=== PATIENT | female | born 1965 | race Caucasian/White ===

== ENCOUNTER 2017-01-17 10:30 | Observation (INO) ==
[2017-01-17] MEDS ORDERED: *HR* HYDROmorphone (PF) 1 MG/ML SYRINGE IV ONE ×2 (11:44→14:35)
[2017-01-17] MEDS ORDERED: Ondansetron 4 MG/2 ML VIAL IVP ONE (11:44)
--- NOTE | 2017-01-17 11:54 | Emergency Department Note ---
Disposition Clinical Impression: Perirectal abscess Disposition: Admitted As Inpatient Condition: Good Referrals: Doug,Yoselyn Chanel CNP [Primary Care Provider] - Forms: Work/School Release, ED Satisfaction Letter General Adult HPI - General Chief complaint: ED General Medical Stated complaint: knot on bottom, constipated Time Seen by Provider: 01/17/17 11:17 Source: patient Limitations: no limitations Nursing Notes Reviewed: Yes Vital Signs Reviewed: Yes - History of Present Illness HPI Narrative: Patient here for evaluation of rectal pain. Patient has complex medical history including diabetes with gastric bypasses, complicated by infection and now chronic MRSA infection. Patient took a bath last night and afterwards noticed rectal pain most significant on the medial left area of the rectum. Patient is the point she cannot tolerate sitting. Patient had type 2 diabetes that underwent gastric bypass complicated with what is now chronic MRSA infection at the surgical site. She now takes Bactrim twice daily. On exam the patient does have hemorrhoids however there is concern for specific tenderness to the 8 to 9 o'clock position with possible abscess. Pain Scale: 8 - Related Data Home Medications Medication Instructions Recorded Confirmed Albuterol Sulfate [Albuterol 2 puff IH Q4HR PRN 08/15/15 01/17/17 Inhaler] Ascorbic Acid [Vitamin C] 1,000 mg PO DAILY 08/15/15 01/17/17 Aspirin 81 mg PO DAILY 08/15/15 01/17/17 Biotin 1 mg PO DAILY 08/15/15 01/17/17 BuPROPion SR (12 HR) [Wellbutrin 150 mg PO DAILY 08/15/15 01/17/17 SR] Cholecalciferol (Vitamin D3) 50,000 unit PO QWEEK 08/15/15 01/17/17 [Vitamin D3] Escitalopram [Lexapro] 10 mg PO DAILY 08/15/15 01/17/17 Fexofenadine HCl 180 mg PO DAILY 08/15/15 01/17/17 LORazepam [Ativan] 1 mg PO HS 08/15/15 01/17/17 Linagliptin [Tradjenta] 5 mg PO DAILY 08/15/15 01/17/17 Lisinopril [Zestril] 20 mg PO HS 08/15/15 01/17/17 Metformin [Glucophage] 500 mg PO BID 08/15/15 01/17/17 Atorvastatin [Lipitor] 40 mg PO HS 01/17/17 01/17/17 Cyanocobalamin (Vitamin B-12) 1,000 mcg PO DAILY 01/17/17 01/17/17 [Vitamin B12] Glimepiride [Amaryl] 1 mg PO DAILY 01/17/17 01/17/17 Omeprazole [PriLOSEC] 40 mg PO DAILY 01/17/17 01/17/17 Pnv95/Ferrous Fumarate/FA 1 each PO BID 01/17/17 01/17/17 [ Vitamin Tablet] Sulfamethoxazole/Trimeth DS 1 each PO DAILY 01/17/17 01/17/17 [Bactrim DS] Allergies Allergy/AdvReac Type Severity Reaction Status Date / Time cefdinir [From Omnicef] Allergy Mild shortness Verified 01/17/17 10:43 of breath ciprofloxacin [From Cipro] Allergy Mild Hives Verified 01/17/17 10:43 levofloxacin [From Levaquin] Allergy Mild RASH Verified 01/17/17 10:43 (PATIENT TOOK AND WENT TO [facility] BED) Penicillins Allergy Mild Hives Verified 01/17/17 10:43 CHILDHOOD REACTION codeine AdvReac Mild Nausea Verified 01/17/17 10:43 All systems ED: reviewed and negative except as stated. Constitutional: Denies: fever, chills, weakness Cardiovascular: Denies: chest pain, dyspnea on exertion Respiratory: Denies: cough Gastrointestinal: Reports: other (Rectal pain). 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 Absent : tenderness - Respiratory Respiratory exam: Present: normal lung sounds bilaterally. Absent: respiratory distress - Cardiovascular Cardiovascular exam: Present: regular rate, normal rhythm - Abdominal Exam Abdominal exam: Present: soft, Non-Tender - Rectal Exam Rectal exam: Present: other (Hemorrhoids present at the 7 to 8 o'clock position. Patient with specific tenderness today 9 o'clock position but with significant tenderness on rectal exam. Concern for possible abscess.) - Extremities Exam Extremities exam: Present: normal inspection. Absent: tenderness - Back Exam Back exam: Present: normal inspection. Absent: CVA tenderness (R), CVA tenderness (L) - Neurological Exam Neurological exam: Present: alert, oriented X3, CN II-XII intact - Psychiatric Psychiatric exam: Present: normal affect, normal mood - Skin Skin exam: Present: warm, dry, intact Course - Reevaluation(s) Reevaluation #1: Risks and benefits of drainage discussed with patient. Patient agrees to undergo procedural sedation for pain. Risks and benefits discussed. All questions answered. Written consent obtained. Patient received an initial 150 mg of ketamine IV and required 75 mg as repeat dose 2. Total ketamine given 300 mg. Patient was placed on oxygen with end-tidal CO2 monitoring. Oral airway placed during sedation. - Consultations Consultation #1: Discussed with Dr. Quintana. She will come to bedside to evaluate. Patient evaluated at bedside by Dr. Denton and there is no OR room available at this time. She has requested that we do procedural sedation for bedside I&D. We will perform bedside I&D with ketamine for sedation. wants pt placed on antibiotics and admitted for further evaluation as she has a history of diabetes and is considered high-risk Vital Signs Temperature 99.0 F 01/17/17 10:44 Pulse Rate 86 01/17/17 10:44 Respiratory Rate 15 01/17/17 10:44 Blood Pressure 121/85 01/17/17 10:44 O2 Sat by Pulse Oximetry 99 01/17/17 10:44 Temperature 99.0 F 01/17/17 10:44 Pulse Rate 92 01/17/17 14:56 Respiratory Rate 16 01/17/17 14:56 Blood Pressure 128/73 01/17/17 14:56 O2 Sat by Pulse Oximetry 99 01/17/17 10:44 Oxygen Delivery Oxygen Delivery [INTRA] Nasal Cannula Oxygen Delivery [PRE] Nasal Cannula Oxygen Delivery Room Air Procedures - Procedural Sedation Indication: incision and drainage of abscess Dietary Status: unknown H&P (including ROS) documented in medical record: Yes Previous reaction to sedatives/anesthetics: No Dentition: No loose teeth or bridges Airway Assessment: Patient can open mouth completely, TMJ function normal, Micrognathia (under-bite, receding chin) absent, Neck with adequate range of motion Possible difficult airway: No ASA Classification: CLASS II-Mild systemic disease Plan of Care: Pt appropriate candidate for procedure/moderate/conscious sedation , Risks/benefits of procedure/sedation discussed w/ patient/family, If not NPO; Risk of intake outweiged by necessity to perform procedure Preparation: athletic monitor applied, pulse oximeter, capnometry used, supplemental O2 applied, suction/airway equipment at bedside Ketamine: IV (300mg total; 150mg initial with 75mg x2 for prolonged sedation secondary to procedure length) Patient Tolerated Procedure: well Complications: none Interventions: oxygen applied Medical Decision Making - MDM Narrative Medical decision making narrative: I examined this patient and my medical decision-making was reviewed with the MOLDING TECHNICIAN/PA/Advanced Practice Nurse/Resident Physician. I agree with the documented findings, disposition and treatment plan as described except to the extent set forth below. I evaluated this patient with Dr. Lo, I agree with his evaluation and management plan, he supervised the care of the patient outstay. Patient comes in today with an area of tenderness along her rectum around the 9 o'clock position. She has had a history of MRSA in the past. She is also diabetic. Negative CT check lab work on her and reassess. She is in agreement with plan. She also has a small hemorrhoid in this area which does not appear to be tender. 1245 hrs.: Patient's labs are back and looked good waiting on CT. Abdomen/Pelvis CT 01/17/17 13:15 IMPRESSION: 1. 4.0 x 2.2 cm lobulated irregular soft tissue and fluid collection along the left perineal space, just lateral of the anus, consistent with a perianal abscess. 2. No acute abnormality within the abdomen or pelvis. 3. Stable left adrenal adenoma. 4. Stable right renal cyst. 5. Patient status post cholecystectomy, gastric bypass, and hysterectomy. D/ / 01/17/2017 13:55:03 Tim Rivera MD / Estelle Hernandez Interpreting Provider: Tim Rivera MD 1400 hrs.: Patient's CT is read that show a collection that appears to be a perianal abscess. Patient has seen Dr. Denton before and she is on today's risk because Dr. Denton the see if she pinched and evaluating this patient. 1515 hrs.: Patient is being seen by Dr. Denton doing an I&D. We did ketamine sedation while she did the I&D. Please see her note, please see Dr. Lo note for further sedation procedure, patient tolerated this well. Procedure time was 25 minutes. 1530 hrs.: Dr. Denton is going to go ahead and admit the patient. Were starting her on vancomycin here. Patient's critical care time excluding separately billable procedures is 35 minutes. - Lab Data Result diagrams: 01/17/17 12:02 01/17/17 12:02 Lab Results 01/17/17 01/17/17 Range/Units 12:02 12:02 WBC 7.6 (4.3-11.1) K/mcL RBC 4.14 (3.82-4.97) M/mcL Hgb 12.0 (11.5-15.4) g/dL Hct 35.9 (35.3-44.9) % MCV 86.7 (83.0-100.0) fL MCH 29.0 (28.0-33.3) pg MCHC 33.4 (31.6-35.5) g/dL RDW 12.8 (11.5-14.5) % Plt Count 189 (140-400) K/mcL MPV 9.2 L (9.4-12.4) fL Immature Gran % 0.4 (0-4) % Seg Neutrophils % 79.9 % Lymphocytes % 13.0 % Monocytes % 5.9 % Eosinophils % 0.5 % Basophils % 0.3 % Neutrophils # 6.1 (1.6-8.9) K/mcL Lymphocytes # 1.0 (0.6-4.6) K/mcL Monocytes # 0.5 (0.0-1.3) K/mcL Eosinophils # 0.0 (0.0-0.6) K/mcL Basophils # 0.0 (0.0-0.2) K/mcL Sodium 137 (136-145) mEq/L Potassium 4.6 H (3.5-4.5) mEq/L Chloride 105 (98-109) mEq/L Carbon Dioxide 24 (19-29) mEq/L BUN 12 (7-20) mg/dL Creatinine 1.08 (0.57-1.11) mg/dL Est GFR ( Amer) > 60 (> 60) Est GFR (Non-Af Amer) 53 L (> 60) BUN/Creatinine Ratio 11 (6-26) Glucose 216 H (70-99) mg/dL Calculated Osmolality 290 (280-300) Calcium 9.3 (8.6-10.8) mg/dL Total Bilirubin 0.4 (0.2-1.2) mg/dL AST 32 (5-34) Units/L ALT 83 H (0-55) Units/L Alkaline Phosphatase 116 (38-126) Units/L Serum Total Protein 6.5 (6.0-8.3) g/dL Albumin 3.5 (3.5-5.0) g/dL Globulin 3.0 (2.4-3.5) g/dL Albumin/Globulin Ratio 1.2 (1.1-2.2)
[2017-01-17 12:16] LABS: Basophils % 0.3 %; Eosinophils % 0.5 %; Hematocrit 35.9 % (35.3-44.9); Immature Granulocytes % 0.4 % (0-4); Mean Corpuscular HGB Conc 33.4 g/dL (31.6-35.5); Mean Corpuscular Volume 86.7 fL (83.0-100.0); Mean Platelet Volume 9.2 fL (9.4-12.4); Monocytes # 0.5 K/mcL (0.0-1.3); Monocytes % 5.9 %; Neutrophils # 6.1 K/mcL (1.6-8.9); Platelet Count 189 K/mcL (140-400); Red Blood Count 4.14 M/mcL (3.82-4.97); Red Cell Distribution Width 12.8 % (11.5-14.5); Segmented Neutrophils % 79.9 %
[2017-01-17 12:28] LABS: Alanine Aminotransferase 83 Units/L (0-55); Albumin 3.5 g/dL (3.5-5.0); Albumin/Globulin Ratio 1.2 (1.1-2.2); Alkaline Phosphatase 116 Units/L (38-126); Aspartate Amino Transferase 32 Units/L (5-34); BUN/Creatinine Ratio 11 (6-26); Bilirubin,Total 0.4 mg/dL (0.2-1.2); Blood Urea Nitrogen 12 mg/dL (7-20); Calcium 9.3 mg/dL (8.6-10.8); Carbon Dioxide 24 mEq/L (19-29); Chloride 105 mEq/L (98-109); Glucose 216 mg/dL (70-99); Osmolality,Calculated 290 (280-300); Potassium 4.6 mEq/L (3.5-4.5); Sodium 137 mEq/L (136-145); Total Protein 6.5 g/dL (6.0-8.3); eGFR For African Americans > 60 (> 60); eGFR For Non-African Americans 53 (> 60)
[2017-01-17] MEDS ORDERED: Ketamine *HR* 500 MG/10 ML MDV IVP ONE ×2 (14:36→16:02)
[2017-01-17] MEDS ORDERED: VANCOMYCIN IV ONE (15:29)
[2017-01-17] MEDS ORDERED: WATER IV ONE (15:29)
[2017-01-17] MEDS ORDERED: D5 IV ONE (15:29)
--- NOTE | 2017-01-17 15:44 | General Surg History&Physical ---
Date of Encounter: 01/17/17 Time of Encounter: 15:40 Assessment and Plan (1) Perianal abscess Current Visit: Yes Status: Acute Perianal abscess I/D'd in the ED with conscious sedation. Keep packing in wound , will remove tomorrow then start sitz baths TID and after BM. Continue Abx prn pain control home meds ok DM diet The assessment and plan as outlined above was discussed with the patient and/or family members who expressed understanding and agreement. All questions were answered. (2) Diabetes Current Visit: Yes Status: Chronic The assessment and plan as outlined above was discussed with the patient and/or family members who expressed understanding and agreement. All questions were answered. continue home medication Qualifiers: Diabetes mellitus type: type 2 Diabetes mellitus complication status: without complication Diabetes mellitus halfway insulin use: unspecified halfway insulin use status Qualified Code(s): E11.9 - Type 2 diabetes mellitus without complications (3) HTN (hypertension) Current Visit: Yes Status: Chronic The assessment and plan as outlined above was discussed with the patient and/or family members who expressed understanding and agreement. All questions were answered. continue home medication Qualifiers: Hypertension type: essential hypertension Qualified Code(s): I10 - Essential (primary) hypertension (4) Anxiety Current Visit: Yes Status: Chronic The assessment and plan as outlined above was discussed with the patient and/or family members who expressed understanding and agreement. All questions were answered. continue home medication (5) Hyperlipidemia Current Visit: Yes Status: Chronic The assessment and plan as outlined above was discussed with the patient and/or family members who expressed understanding and agreement. All questions were answered. continue home medication Qualifiers: Hyperlipidemia type: unspecified Qualified Code(s): E78.5 - Hyperlipidemia , unspecified History of Present Illness Chief complaint: perianal pain HPI: Ms. Curiel is a 51 year old female with a history of mrsa infections comes into ER complaining of perianal pain. The pain began last night after she took a bath. The pain is at the left perianal space. She had a bm today and it was painful. She has never had anything like this previously. She presented to the ED where a CT scan showed a 4cm perianal abscess. WBC wnl Past Med Surg Social Fam HX - Past Medical History Source: patient Medical history: asthma, diabetes, hyperlipidemia, hypertension Psychiatric history: anxiety - Past Surgical History Surgical History: hysterectomy, other - Social History Smoking Status: Never smoker Smokeless Tobacco Status: No Alcohol use: none Drug use: none Medications and Allergies Albuterol Sulfate [Albuterol Inhaler] 2 puff IH Q4HR PRN 08/15/15 [History] Ascorbic Acid [Vitamin C] 1,000 mg PO DAILY 08/15/15 [History] Aspirin 81 mg PO DAILY 08/15/15 [History] Biotin 1 mg PO DAILY 08/15/15 [History] BuPROPion SR (12 HR) [Wellbutrin SR] 150 mg PO DAILY 08/15/15 [History] Cholecalciferol (Vitamin D3) [Vitamin D3] 50,000 unit PO QWEEK 08/15/15 [History ] Escitalopram [Lexapro] 10 mg PO DAILY 08/15/15 [History] Fexofenadine HCl 180 mg PO DAILY 08/15/15 [History] LORazepam [Ativan] 1 mg PO HS 08/15/15 [History] Linagliptin [Tradjenta] 5 mg PO DAILY 08/15/15 [History] Lisinopril [Zestril] 20 mg PO HS 08/15/15 [History] Metformin [Glucophage] 500 mg PO BID 08/15/15 [History] Atorvastatin [Lipitor] 40 mg PO HS 01/17/17 [History] Cyanocobalamin (Vitamin B-12) [Vitamin B12] 1,000 mcg PO DAILY 01/17/17 [History ] Glimepiride [Amaryl] 1 mg PO DAILY 01/17/17 [History] Omeprazole [PriLOSEC] 40 mg PO DAILY 01/17/17 [History] Pnv95/Ferrous Fumarate/FA [ Vitamin Tablet] 1 each PO BID 01/17/17 [ History] Sulfamethoxazole/Trimeth DS [Bactrim DS] 1 each PO DAILY 01/17/17 [History] Allergies cefdinir [From Omnicef] Allergy (Mild, Verified 01/17/17 10:43) shortness of breath ciprofloxacin [From Cipro] Allergy (Mild, Verified 01/17/17 10:43) Hives levofloxacin [From Levaquin] Allergy (Mild, Verified 01/17/17 10:43) RASH (PATIENT TOOK AND WENT TO [facility] BED) Penicillins Allergy (Mild, Verified 01/17/17 10:43) Hives CHILDHOOD REACTION codeine Adverse Reaction (Mild, Verified 01/17/17 10:43) Nausea Review of Systems All systems PM: reviewed and no additional remarkable complaints except as stated All systems PM: A 10-system review of systems was performed and is negative for pertinent findings except as documented above in the HPI. General Surgery Exam Initial Vital Signs Temp Pulse Resp BP Pulse Ox 99.0 F 86 15 121/85 99 01/17/17 10:44 01/17/17 10:44 01/17/17 10:44 01/17/17 10:44 01/17/17 10:44 - General physical appearance well developed, well nourished, no distress - Eyes PERRL, normal ocular movement - ENT normal mucosa, normocephalic - Respiratory normal respiratory effort, clear to auscultation - Cardiovascular Cardiovascular exam: Present: RRR - Abdomen Abdomen general surgery: Present: bowel sounds present, soft, non tender - Rectum Rectum: Present: other (perianal fluctuance at anterior left anus, tender, slight erythema) - Neurologic Present: CN 2-12 grossly intact - Musculoskeletal Present: normal posture - Psychiatric Psychiatric general surgery: Present: A&Ox3, speech is normal Results - Labs 01/17/17 12:02 01/17/17 12:02 Abnormal lab results MPV 9.2 fL (9.4-12.4) L 01/17/17 12:02 Potassium 4.6 mEq/L (3.5-4.5) H 01/17/17 12:02 Est GFR (Non-Af Amer) 53 (> 60) L 01/17/17 12:02 Glucose 216 mg/dL (70-99) H 01/17/17 12:02 ALT 83 Units/L (0-55) H 01/17/17 12:02 Diabetes panel 01/17/17 Range/Units 12:02 Sodium 137 (136-145) mEq/L Potassium 4.6 H (3.5-4.5) mEq/L Chloride 105 (98-109) mEq/L Carbon Dioxide 24 (19-29) mEq/L BUN 12 (7-20) mg/dL Creatinine 1.08 (0.57-1.11) mg/dL Glucose 216 H (70-99) mg/dL Calcium 9.3 (8.6-10.8) mg/dL AST 32 (5-34) Units/L ALT 83 H (0-55) Units/L Alkaline Phosphatase 116 (38-126) Units/L Albumin 3.5 (3.5-5.0) g/dL Calcium panel 01/17/17 Range/Units 12:02 Calcium 9.3 (8.6-10.8) mg/dL Albumin 3.5 (3.5-5.0) g/dL Pituitary panel 01/17/17 Range/Units 12:02 Sodium 137 (136-145) mEq/L Potassium 4.6 H (3.5-4.5) mEq/L Chloride 105 (98-109) mEq/L Carbon Dioxide 24 (19-29) mEq/L BUN 12 (7-20) mg/dL Creatinine 1.08 (0.57-1.11) mg/dL Glucose 216 H (70-99) mg/dL Calcium 9.3 (8.6-10.8) mg/dL Adrenal panel 01/17/17 Range/Units 12:02 Sodium 137 (136-145) mEq/L Potassium 4.6 H (3.5-4.5) mEq/L Chloride 105 (98-109) mEq/L Carbon Dioxide 24 (19-29) mEq/L BUN 12 (7-20) mg/dL Creatinine 1.08 (0.57-1.11) mg/dL Glucose 216 H (70-99) mg/dL Calcium 9.3 (8.6-10.8) mg/dL Total Bilirubin 0.4 (0.2-1.2) mg/dL AST 32 (5-34) Units/L ALT 83 H (0-55) Units/L Alkaline Phosphatase 116 (38-126) Units/L Albumin 3.5 (3.5-5.0) g/dL All other labs normal. - Imaging CT scan - abdomen: report reviewed, image reviewed CT scan - pelvis: report reviewed, image reviewed Procedures: General Surgery - Abscess I/D Consent obtained: written consent Site: perianal Side (if applicable): left, midline Sedation/analgesia: other (ER performed conscious sedation, see their note for this component) Anesthetic used: lidocaine 1% (5cc) Technique: needle aspiration, incised with #11 blade Irrigation: Yes (sterile saline) Packing used: .25 inch iodoform Packing size: 1/4" Complications: none Additional comments: Patient was placed in the right lateral decubitus position. Timeout was performed everyone is in agreement. The ER performed conscious sedation. The perianal area was prepped with Betadine. Using a 19-gauge needle in a 10 mL syringe the area of perianal fluctuance was aspirated and pus was aspirated. Using an 11 blade a elliptical incision through the skin and subcutaneous tissue was made at the site of pus aspiration. Purulent drainage resulted from the wound. Aerobic and anaerobic cultures were obtained. The cavity was probed with a sterile Q-tip breaking up any loculations. The abscess cavity was irrigated with sterile saline. The abscess was then packed with quarter inch iodoform packing, 4 x 4 gauze and 2 inch silk tape were applied as a dressing. Patient tolerated the procedure well.
[2017-01-17] MEDS ORDERED: Vancomycin 1,000 MG VIAL ONE (16:00)
[2017-01-17] MEDS ORDERED: Vancomycin 1,500 MG in D5% in Water 250 ML IVPB ONE (16:15)
[2017-01-17] MEDS ORDERED: *HR* Morphine 2 MG/ML SYRINGE IVP PRN (16:56)
[2017-01-17] MEDS ORDERED: D5% in Water 1,000 ML IV PRN (16:56)
[2017-01-17] MEDS ORDERED: *HR* Metoprolol 5 MG/5 ML VIAL IVP PRN (16:56)
[2017-01-17] MEDS ORDERED: Ondansetron 4 MG/2 ML VIAL IVP PRN (16:56)
[2017-01-17] MEDS ORDERED: Dextrose Gel 15 GM PO PRN ×2 (16:56)
[2017-01-17] MEDS ORDERED: *HR* Promethazine 25 MG/ML VIAL IVP PRN (16:56)
[2017-01-17] MEDS ORDERED: Naloxone 0.4 MG/ML INJ IVP PRN (16:56)
[2017-01-17] MEDS ORDERED: *HR* Dextrose 50 % in Water (Syg) 50 ML SYRINGE IVP PRN (16:56)
[2017-01-17] MEDS: Fluconazole 100 MG TABLET PO SCH (17:43)
[2017-01-17] MEDS: Clindamycin 900 MG/50 ML 900 MG/50 ML IV.SOLN IVPB SCH ×2 (17:43→23:51)
[2017-01-17] MEDS: 0.9 % Sodium Chloride 1,000 ML IVC SCH (17:43)
[2017-01-17] MEDS: *HR* OxyCODONE/APAP 5/325 TABLET PO PRN (18:02)
[2017-01-17] MEDS: Lisinopril 20 MG TABLET PO SCH (21:17)
[2017-01-17] MEDS: *HR* LORazepam 1 MG TABLET PO SCH (21:17)
[2017-01-17] MEDS: *HR* Metformin 500 MG TABLET PO SCH (21:26)
[2017-01-18] MEDS: *HR* OxyCODONE/APAP 5/325 TABLET PO PRN ×4 (03:51→20:11)
[2017-01-18] MEDS: Vancomycin 1,250 MG in D5% in Water 250 ML IVPB SCH ×2 (03:52→16:50)
[2017-01-18 05:21] LABS: Basophils % 0.4 %; Eosinophils # 0.1 K/mcL (0.0-0.6); Eosinophils % 1.4 %; Hematocrit 32.4 % (35.3-44.9); Hemoglobin 10.5 g/dL (11.5-15.4); Immature Granulocytes % 0.6 % (0-4); Lymphocytes # 0.9 K/mcL (0.6-4.6); Lymphocytes % 17.7 %; Mean Corpuscular HGB Conc 32.4 g/dL (31.6-35.5); Mean Corpuscular Hemoglobin 28.7 pg (28.0-33.3); Mean Corpuscular Volume 88.5 fL (83.0-100.0); Mean Platelet Volume 9.7 fL (9.4-12.4); Monocytes # 0.5 K/mcL (0.0-1.3); Monocytes % 9.9 %; Neutrophils # 3.4 K/mcL (1.6-8.9); Platelet Count 177 K/mcL (140-400); Red Blood Count 3.66 M/mcL (3.82-4.97); Red Cell Distribution Width 12.8 % (11.5-14.5)
[2017-01-18 05:34] LABS: Calcium 8.8 mg/dL (8.6-10.8); Potassium 4.8 mEq/L (3.5-4.5)
[2017-01-18] MEDS ORDERED: 0.9 % Sodium Chloride 500 ML IVC ONE (08:16)
[2017-01-18] MEDS: Clindamycin 900 MG/50 ML 900 MG/50 ML IV.SOLN IVPB SCH ×2 (08:18→16:05)
[2017-01-18] MEDS: BuPROPion SR (12 HR) 150 MG TABLET PO SCH (08:19)
[2017-01-18] MEDS: Loratadine 10 MG TABLET PO SCH (08:19)
[2017-01-18] MEDS: Insulin LISPRO 300 UNITS/3 ML VIAL SQ SCH ×3 (08:20→16:51)
[2017-01-18] MEDS: *HR* Glimepiride 2 MG TABLET PO SCH (08:20)
[2017-01-18] MEDS: Fluconazole 100 MG TABLET PO SCH (08:20)
[2017-01-18] MEDS: (Linagliptin [Tradjenta] 5 MG) PO SCH (08:20)
[2017-01-18] MEDS: *HR* Metformin 500 MG TABLET PO SCH ×2 (08:20→20:10)
[2017-01-18] MEDS ORDERED: NON-FORMULARY MEDICATION 1 EACH EACH (Omeprazole [Prilosec] 40 MG) PO SCH (09:00)
--- NOTE | 2017-01-18 10:09 | General Surgery Progress Note ---
<Jeevan Clark - Last Filed: 01/18/17 11:25> Date of Encounter: 01/18/17 Time of Encounter: 07:40 - Assessment and Plan (1) Perianal abscess Current Visit: Yes Status: Acute Packing to be removed today. Sitz baths TID and after bowel movements. History of MRSA. Continue clindamycin and vancomycin Day #2. Prn pain control. Continue diabetic diet. Continue home medications. (2) YONATAN (acute kidney injury) Current Visit: Yes Status: Acute Creatinine elevated at 1.26 today. The patient was given a 1L bolus of fluids. I called and spoke with the pharmacist who stated that they will adjust dosing of Vancomycin if necessary. Continue to monitor. (3) Diabetes Current Visit: Yes Status: Chronic Continue home medications. Qualifiers: Diabetes mellitus type: type 2 Diabetes mellitus complication status: without complication Diabetes mellitus termination clerk insulin use: unspecified detention insulin use status Qualified Code(s): E11.9 - Type 2 diabetes mellitus without complications (4) HTN (hypertension) Current Visit: Yes Status: Chronic Continue home medications. Qualifiers: Hypertension type: essential hypertension Qualified Code(s): I10 - Essential (primary) hypertension (5) Anxiety Current Visit: Yes Status: Chronic Continue home medications. (6) Hyperlipidemia Current Visit: Yes Status: Chronic Continue home medications. Qualifiers: Hyperlipidemia type: unspecified Qualified Code(s): E78.5 - Hyperlipidemia , unspecified (7) DVT prophylaxis Current Visit: Yes Status: Acute Ambulate TID with assist. Subjective Patient reports: no new complaints Narrative: The patient reports that she had an episode of nausea and vomiting last night, which has since resolved. She continues to have some soreness in the area of her abscess. She states she has not had any bowel movement since arriving to the hospital yesterday. She states that she felt feverish for a period of time last night. The patient's recorded Tmax was 99.3 at 7:25pm last night. Objective Vital Signs - Last 8 Hours Temp Pulse Resp BP Pulse Ox 01/18/17 07:12 97.9 F 66 14 107/57 94 L 01/18/17 03:38 98.1 F 70 14 94/60 93 L Intake and Output 01/17/17 01/18/17 01/18/17 23:59 07:59 15:59 Intake Total 50 / 50 300 / 300 1290 / 1290 Output Total 500 / 500 250 / 250 Balance -450 / -450 50 / 50 1290 / 1290 Intake: IV Fluids 50 / 50 300 / 300 1050 / 1050 0.9 % Sodium Chloride 1, 1000 / 1000 000 ML @ 75 mls/hr IVC . [id number] JORGE A Rx#: [id number] Cleocin 900 MG/50 ML 900 50 / 50 50 / 50 50 / 50 mg In 50 ml @ 50 mls/hr IVPB Q8HR JORGE A Rx#: [id number] Vancocin 1,250 MG In 250 / 250 Dextrose 5% 250 ML @ 166. 67 mls/hr IVPB Q12H JORGE A Rx#:[id number] Oral 0 / 0 0 / 0 240 / 240 Output: Urine 500 / 500 250 / 250 Other: Meal Breakfast Percent of Meal Consumed 25% # Voids 1 1 Weight 77 kg Blood Glucose* 265 297 Patient Weight 01/18/17 23:59 Weight 77 kg - General physical appearance well developed, well nourished, no distress - Eyes normal ocular movement - ENT normal mucosa, atraumatic, normocephalic - Neck Neck exam: trachea midline - Respiratory normal respiratory effort, clear to auscultation - Cardiovascular Cardiovascular exam: Present: RRR - Abdomen Abdomen: Present: bowel sounds present, soft, non tender - Integumentary no rash - Neurologic CN 2-12 grossly intact - Psychiatric oriented to time, oriented to person, oriented to place, speech is normal, memory intact - Labs 01/18/17 04:54 01/18/17 04:54 Diabetes panel 01/18/17 Range/Units 04:54 Sodium 136 (136-145) mEq/L Potassium 4.8 H (3.5-4.5) mEq/L Chloride 104 (98-109) mEq/L Carbon Dioxide 24 (19-29) mEq/L BUN 16 (7-20) mg/dL Creatinine 1.26 H (0.57-1.11) mg/dL Glucose 286 H (70-99) mg/dL Calcium 8.8 (8.6-10.8) mg/dL Calcium panel 01/18/17 Range/Units 04:54 Calcium 8.8 (8.6-10.8) mg/dL Pituitary panel 01/18/17 Range/Units 04:54 Sodium 136 (136-145) mEq/L Potassium 4.8 H (3.5-4.5) mEq/L Chloride 104 (98-109) mEq/L Carbon Dioxide 24 (19-29) mEq/L BUN 16 (7-20) mg/dL Creatinine 1.26 H (0.57-1.11) mg/dL Glucose 286 H (70-99) mg/dL Calcium 8.8 (8.6-10.8) mg/dL Adrenal panel 01/18/17 Range/Units 04:54 Sodium 136 (136-145) mEq/L Potassium 4.8 H (3.5-4.5) mEq/L Chloride 104 (98-109) mEq/L Carbon Dioxide 24 (19-29) mEq/L BUN 16 (7-20) mg/dL Creatinine 1.26 H (0.57-1.11) mg/dL Glucose 286 H (70-99) mg/dL Calcium 8.8 (8.6-10.8) mg/dL Consult Discharge Plan - Plan Referrals: Yoselyn Camacho [employer] [Primary Care Provider] - - Attending Attestation I examined this patient and my medical decision-making was reviewed with the DRAWING MACHINE OPERATOR/PA/Advanced Practice Nurse/Resident Physician. I agree with the documented findings, disposition and treatment plan as described except to the extent set forth below. <Barbie Quintana - Last Filed: 01/18/17 11:36> Date of Encounter: 01/18/17 Time of Encounter: 11:30 - Assessment and Plan (1) Perianal abscess Current Visit: Yes Status: Acute s/p I/D continue Abx, discussed vanco dosing and Cr with pharmacy, they stated may adjust dosing recheck Cr in am, 500cc bolus NS given today, continue IVF hydration diabetic diet continue home meds cultures from I/D pending (2) Diabetes Current Visit: Yes Status: Chronic holding metformin for 72 hrs secondary to IV contrast Qualifiers: Diabetes mellitus type: type 2 Diabetes mellitus complication status: without complication Diabetes mellitus termination clerk insulin use: unspecified detention insulin use status Qualified Code(s): E11.9 - Type 2 diabetes mellitus without complications (3) HTN (hypertension) Current Visit: Yes Status: Chronic normotensive, monitor, continue home meds Qualifiers: Hypertension type: essential hypertension Qualified Code(s): I10 - Essential (primary) hypertension (4) Anxiety Current Visit: Yes Status: Chronic (5) Hyperlipidemia Current Visit: Yes Status: Chronic Qualifiers: Hyperlipidemia type: unspecified Qualified Code(s): E78.5 - Hyperlipidemia , unspecified (6) YONATAN (acute kidney injury) Current Visit: Yes Status: Acute pt recieved IV contrast for CT scan yday, on vanco. bolus NS given and IVF running at 75c/hr, monitor Cr good uop Subjective Narrative: pain primarily controlled c/o headache last night tolerating diet urinating w/o incident Objective Vital Signs - Last 8 Hours Temp Pulse Resp BP Pulse Ox 01/18/17 07:12 97.9 F 66 14 107/57 94 L 01/18/17 03:38 98.1 F 70 14 94/60 93 L Intake and Output 01/17/17 01/18/17 01/18/17 23:59 07:59 15:59 Intake Total 50 / 50 300 / 300 1290 / 1290 Output Total 500 / 500 250 / 250 Balance -450 / -450 50 / 50 1290 / 1290 Intake: IV Fluids 50 / 50 300 / 300 1050 / 1050 0.9 % Sodium Chloride 1, 1000 / 1000 000 ML @ 75 mls/hr IVC . [id number] JORGE A Rx#: [id number] Cleocin 900 MG/50 ML 900 50 / 50 50 / 50 50 / 50 mg In 50 ml @ 50 mls/hr IVPB Q8HR JORGE A Rx#: [id number] Vancocin 1,250 MG In 250 / 250 Dextrose 5% 250 ML @ 166. 67 mls/hr IVPB Q12H JORGE A Rx#:[id number] Oral 0 / 0 0 / 0 240 / 240 Output: Urine 500 / 500 250 / 250 Other: Meal Breakfast Percent of Meal Consumed 25% # Voids 1 1 Weight 77 kg Blood Glucose* 265 297 Patient Weight 01/18/17 23:59 Weight 77 kg - General physical appearance well developed, well nourished, no distress - Eyes normal ocular movement - ENT normal mucosa, normocephalic - Neck Neck exam: trachea midline - Respiratory normal expansion, normal respiratory effort - Cardiovascular Cardiovascular exam: Present: RRR - Abdomen Abdomen: Present: soft, non tender - Rectum other (I/D site, still cleaner, no purulent drainage, packing removed) - Integumentary no rash, no growths - Neurologic CN 2-12 grossly intact - Musculoskeletal normal posture - Psychiatric oriented to time, memory intact - Labs 01/18/17 04:54 01/18/17 04:54 Diabetes panel 01/18/17 Range/Units 04:54 Sodium 136 (136-145) mEq/L Potassium 4.8 H (3.5-4.5) mEq/L Chloride 104 (98-109) mEq/L Carbon Dioxide 24 (19-29) mEq/L BUN 16 (7-20) mg/dL Creatinine 1.26 H (0.57-1.11) mg/dL Glucose 286 H (70-99) mg/dL Calcium 8.8 (8.6-10.8) mg/dL Calcium panel 01/18/17 Range/Units 04:54 Calcium 8.8 (8.6-10.8) mg/dL Pituitary panel 01/18/17 Range/Units 04:54 Sodium 136 (136-145) mEq/L Potassium 4.8 H (3.5-4.5) mEq/L Chloride 104 (98-109) mEq/L Carbon Dioxide 24 (19-29) mEq/L BUN 16 (7-20) mg/dL Creatinine 1.26 H (0.57-1.11) mg/dL Glucose 286 H (70-99) mg/dL Calcium 8.8 (8.6-10.8) mg/dL Adrenal panel 01/18/17 Range/Units 04:54 Sodium 136 (136-145) mEq/L Potassium 4.8 H (3.5-4.5) mEq/L Chloride 104 (98-109) mEq/L Carbon Dioxide 24 (19-29) mEq/L BUN 16 (7-20) mg/dL Creatinine 1.26 H (0.57-1.11) mg/dL Glucose 286 H (70-99) mg/dL Calcium 8.8 (8.6-10.8) mg/dL
--- NOTE | 2017-01-18 11:42 | Discharge Summary ---
<Jeevan Clark - Last Filed: 01/20/17 07:28> Date of Encounter: 01/20/17 Time of Encounter: 06:45 - Discharge Diagnosis (1) Perianal abscess Priority: Primary Status: Acute (2) YONATAN (acute kidney injury) Priority: Secondary Status: Acute (3) Diabetes Priority: Secondary Status: Chronic Qualifiers: Diabetes mellitus type: type 2 Diabetes mellitus complication status: without complication Diabetes mellitus bed bug exterminator insulin use: unspecified bed bug exterminator insulin use status Qualified Code(s): E11.9 - Type 2 diabetes mellitus without complications (4) HTN (hypertension) Priority: Secondary Status: Chronic Qualifiers: Hypertension type: essential hypertension Qualified Code(s): I10 - Essential (primary) hypertension (5) Anxiety Priority: Secondary Status: Chronic (6) Hyperlipidemia Priority: Secondary Status: Chronic Qualifiers: Hyperlipidemia type: unspecified Qualified Code(s): E78.5 - Hyperlipidemia , unspecified (7) DVT prophylaxis Priority: Secondary Status: Acute - Discharge Medications Prescriptions: OxyCODONE/APAP 5/325 [Percocet 5/325 MG] 1 each PO Q6HR PRN #40 tablet PRN Reason: Pain Docusate [Colace] 100 mg PO BID #30 capsule Sulfamethoxazole/Trimeth DS [Bactrim DS] 1 each PO BID #20 tablet Home Medications: Albuterol Sulfate [Albuterol Inhaler] 2 puff IH Q4HR PRN 08/15/15 [History] Ascorbic Acid [Vitamin C] 1,000 mg PO DAILY 08/15/15 [History] Aspirin 81 mg PO DAILY 08/15/15 [History] Biotin 1 mg PO DAILY 08/15/15 [History] BuPROPion SR (12 HR) [Wellbutrin SR] 150 mg PO DAILY 08/15/15 [History] Cholecalciferol (Vitamin D3) [Vitamin D3] 50,000 unit PO QWEEK 08/15/15 [History ] Escitalopram [Lexapro] 10 mg PO DAILY 08/15/15 [History] Fexofenadine HCl 180 mg PO DAILY 08/15/15 [History] LORazepam [Ativan] 1 mg PO HS 08/15/15 [History] Linagliptin [Tradjenta] 5 mg PO DAILY 08/15/15 [History] Lisinopril [Zestril] 20 mg PO HS 08/15/15 [History] Metformin [Glucophage] 500 mg PO BID 08/15/15 [History] Atorvastatin [Lipitor] 40 mg PO HS 01/17/17 [History] Cyanocobalamin (Vitamin B-12) [Vitamin B12] 1,000 mcg PO DAILY 01/17/17 [History ] Glimepiride [Amaryl] 1 mg PO DAILY 01/17/17 [History] Omeprazole [PriLOSEC] 40 mg PO DAILY 01/17/17 [History] Pnv95/Ferrous Fumarate/FA [ Vitamin Tablet] 1 each PO BID 01/17/17 [ History] Sulfamethoxazole/Trimeth DS [Bactrim DS] 1 each PO DAILY 01/17/17 [History] Docusate [Colace] 100 mg PO BID #30 capsule 01/20/17 [Rx] OxyCODONE/APAP 5/325 [Percocet 5/325 MG] 1 each PO Q6HR PRN #40 tablet 01/20/17 [Rx] Sulfamethoxazole/Trimeth DS [Bactrim DS] 1 each PO BID #20 tablet 01/20/17 [Rx] Allergies/Adverse Reactions: Allergies cefdinir [From Omnicef] Allergy (Mild, Verified 01/17/17 10:43) shortness of breath ciprofloxacin [From Cipro] Allergy (Mild, Verified 01/17/17 10:43) Hives levofloxacin [From Levaquin] Allergy (Mild, Verified 01/17/17 10:43) RASH (PATIENT TOOK AND WENT TO [facility]) Penicillins Allergy (Mild, Verified 01/17/17 10:43) Hives CHILDHOOD REACTION codeine Adverse Reaction (Mild, Verified 01/17/17 10:43) Nausea General Surgery Exam Initial Vital Signs Temp Pulse Resp BP Pulse Ox 99.0 F 86 15 121/85 99 01/17/17 10:44 01/17/17 10:44 01/17/17 10:44 01/17/17 10:44 01/17/17 10:44 - General physical appearance well developed, well nourished, no distress - Eyes normal ocular movement - ENT normal mucosa, atraumatic, normocephalic - Neck trachea midline - Respiratory normal respiratory effort, clear to auscultation - Cardiovascular Cardiovascular exam: Present: RRR - Abdomen Abdomen general surgery: Present: bowel sounds present, soft, non tender - Rectum Rectum: Present: other (I/D site, no purulent drainage) - Integumentary Integumentary general surgery: Present: warm and dry - Neurologic Present: CN 2-12 grossly intact - Psychiatric Psychiatric general surgery: Present: appropriate, oriented to person, oriented to place, oriented to time, speech is normal Date of admission: 01/17/17 16:06 Primary care physician: Yoselyn Camacho CNP Discharging clinician: Barbie Quintana Anticipated date of discharge: 01/19/17 - Patient Status Disposition: Home, Self-Care Condition: Good Functional capacity at discharge: independent ambulation Overall status at discharge: patient is back to baseline - Discharge Instructions Follow Up With: Marii Adams CNP [Advanced Practice Nurse] - 02/03/17 9:15 am Additional Instructions: Continue sitz baths three times a day and after bowel movements. Keep the area clean and dry. No lifting more than 20lbs for [address] while on narcotics. Followup with either Latanya Adams or Dr. Quintana within 2 weeks. Call for appointment. If constipated while on colace picker and sorter load and unload a bottle of magnesium citrate from local pharmacy. Drink 1/3 of the bottle and wait several hours. If no results drink the next 1/3. If still no results, then drink the next 1/3 on the following day. - Diet and Activity Activity: increase activity as tolerated Diet: advance to your usual diet - Hospital Course Hospital course: Ms. 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 She was found to have a perianal abscess that occurred while on Bactrim BID. The abscess underwent I/D in the ED with conscious sedation on 01/17/17. Vancomycin and clindamycin were ordered for antibiotic coverage. The wound was packed and the following day the packing was removed and sitz baths were ordered. The patient reported that the sitz baths helped with the soreness of her area of pain. She reports she has not had a bowel movement yet. Her creatinine was found to be slightly elevated on 01/18 and continued to rise to 1.36 on 01/19. Vancomycin was discontinued and the patient was kept for an additional day to continue to monitor renal function. On 01/20 her creatinine improved to 1.24. The patient was comfortable and agreeable to returning home. All questions were answered and the patient is understanding and agreeable to the plan of care. - Time Spent with Patient Total time spent providing and/or coordinating discharge services: Less than 30 minutes Labs on day of discharge: Labs from last 24 hours 01/18/17 01/18/17 01/17/17 04:54 04:54 21:11 WBC 4.9 RBC 3.66 L Hgb 10.5 L D Hct 32.4 L MCV 88.5 MCH 28.7 MCHC 32.4 RDW 12.8 Plt Count 177 MPV 9.7 Immature Gran % 0.6 Seg Neutrophils % 70.0 Lymphocytes % 17.7 Monocytes % 9.9 Eosinophils % 1.4 Basophils % 0.4 Neutrophils # 3.4 Lymphocytes # 0.9 Monocytes # 0.5 Eosinophils # 0.1 Basophils # 0.0 Sodium 136 Potassium 4.8 H Chloride 104 Carbon Dioxide 24 BUN 16 Creatinine 1.26 H Est GFR ( Amer) 54 L Est GFR (Non-Af Amer) 45 L BUN/Creatinine Ratio 13 Glucose 286 H POC Glucose 265 H Calculated Osmolality 294 Calcium 8.8 01/17/17 17:19 WBC RBC Hgb Hct MCV MCH MCHC RDW Plt Count MPV Immature Gran % Seg Neutrophils % Lymphocytes % Monocytes % Eosinophils % Basophils % Neutrophils # Lymphocytes # Monocytes # Eosinophils # Basophils # Sodium Potassium Chloride Carbon Dioxide BUN Creatinine Est GFR ( Amer) Est GFR (Non-Af Amer) BUN/Creatinine Ratio Glucose POC Glucose 281 H Calculated Osmolality Calcium - Attending Attestation I examined this patient and my medical decision-making was reviewed with the SILK WORKER/PA/Advanced Practice Nurse/Resident Physician. I agree with the documented findings, disposition and treatment plan as described except to the extent set forth below. <Barbie Quintana - Last Filed: 01/20/17 08:49> Date of Encounter: 01/20/17 - Discharge Diagnosis (1) Perianal abscess Status: Acute (2) Diabetes Status: Chronic Qualifiers: Diabetes mellitus type: type 2 Diabetes mellitus complication status: without complication Diabetes mellitus bed bug exterminator insulin use: unspecified bed bug exterminator insulin use status Qualified Code(s): E11.9 - Type 2 diabetes mellitus without complications (3) HTN (hypertension) Status: Chronic Qualifiers: Hypertension type: essential hypertension Qualified Code(s): I10 - Essential (primary) hypertension (4) Anxiety Status: Chronic (5) Hyperlipidemia Status: Chronic Qualifiers: Hyperlipidemia type: unspecified Qualified Code(s): E78.5 - Hyperlipidemia , unspecified (6) YONATAN (acute kidney injury) Status: Acute General Surgery Exam Initial Vital Signs Temp Pulse Resp BP Pulse Ox 99.0 F 86 15 121/85 99 01/17/17 10:44 01/17/17 10:44 01/17/17 10:44 01/17/17 10:44 01/17/17 10:44 Date of admission: 01/17/17 16:06 Primary care physician: Yoselyn Camacho CNP - Hospital Course Hospital course: Ms. Curiel is a 51 year old female - Time Spent with Patient Total time spent providing and/or coordinating discharge services: Labs on day of discharge: Labs from last 24 hours 01/20/17 01/19/17 01/19/17 05:11 20:15 15:58 Sodium 140 Potassium 4.5 Chloride 110 H Carbon Dioxide 22 BUN 14 Creatinine 1.24 H Est GFR ( Amer) 55 L Est GFR (Non-Af Amer) 45 L BUN/Creatinine Ratio 11 Glucose 148 H POC Glucose 201 H 121 H Calculated Osmolality 293 Calcium 8.5 L 01/19/17 11:38 Sodium Potassium Chloride Carbon Dioxide BUN Creatinine Est GFR ( Amer) Est GFR (Non-Af Amer) BUN/Creatinine Ratio Glucose POC Glucose 307 H Calculated Osmolality Calcium
[2017-01-18] MEDS: 0.9 % Sodium Chloride 1,000 ML IVC SCH (12:00)
[2017-01-18] MEDS: *HR* LORazepam 1 MG TABLET PO SCH (20:10)
[2017-01-18] MEDS: Lisinopril 20 MG TABLET PO SCH (20:11)
[2017-01-19] MEDS: *HR* OxyCODONE/APAP 5/325 TABLET PO PRN ×5 (00:15→22:47)
[2017-01-19] MEDS: 0.9 % Sodium Chloride 1,000 ML IVC SCH ×2 (01:30→16:52)
[2017-01-19] MEDS: Clindamycin 900 MG/50 ML 900 MG/50 ML IV.SOLN IVPB SCH ×4 (01:30→22:47)
[2017-01-19 04:25] LABS: Basophils % 0.7 %; Eosinophils # 0.1 K/mcL (0.0-0.6); Eosinophils % 2.4 %; Hematocrit 32.5 % (35.3-44.9); Hemoglobin 10.5 g/dL (11.5-15.4); Immature Granulocytes % 0.7 % (0-4); Lymphocytes # 0.8 K/mcL (0.6-4.6); Lymphocytes % 17.4 %; Mean Corpuscular HGB Conc 32.3 g/dL (31.6-35.5); Mean Corpuscular Hemoglobin 28.6 pg (28.0-33.3); Mean Corpuscular Volume 88.6 fL (83.0-100.0); Mean Platelet Volume 9.6 fL (9.4-12.4); Monocytes # 0.4 K/mcL (0.0-1.3); Monocytes % 8.1 %; Neutrophils # 3.2 K/mcL (1.6-8.9); Platelet Count 161 K/mcL (140-400); Red Blood Count 3.67 M/mcL (3.82-4.97); Segmented Neutrophils % 70.7 %
[2017-01-19 04:49] LABS: Calcium 8.6 mg/dL (8.6-10.8); Potassium 4.6 mEq/L (3.5-4.5)
[2017-01-19] MEDS: Loratadine 10 MG TABLET PO SCH (07:50)
[2017-01-19] MEDS: *HR* Metformin 500 MG TABLET PO SCH ×2 (07:50→21:06)
[2017-01-19] MEDS: *HR* Glimepiride 2 MG TABLET PO SCH (07:50)
[2017-01-19] MEDS: BuPROPion SR (12 HR) 150 MG TABLET PO SCH (07:50)
[2017-01-19] MEDS: Fluconazole 100 MG TABLET PO SCH (07:52)
[2017-01-19] MEDS: Insulin LISPRO 300 UNITS/3 ML VIAL SQ SCH ×3 (07:52→16:56)
[2017-01-19] MEDS: (Linagliptin [Tradjenta] 5 MG) PO SCH (07:55)
[2017-01-19] MEDS ORDERED: Aminoglycoside Consult 1 EACH MC ONE (08:46)
--- NOTE | 2017-01-19 11:24 | General Surgery Progress Note ---
<Barbie Quintana - Last Filed: 01/19/17 11:28> Date of Encounter: 01/19/17 - Assessment and Plan (1) Perianal abscess Current Visit: Yes Status: Acute cultures pending, gram stain showed gnr, continue clinda DC vanco secondary to increasing Cr will restart po bactrim she takes for mrsa infections (2) Diabetes Current Visit: Yes Status: Chronic holding metformin, increased SSI due to elevated MBS, monitor Qualifiers: Diabetes mellitus type: type 2 Diabetes mellitus complication status: without complication Diabetes mellitus assisted insulin use: unspecified computer terminal operator insulin use status Qualified Code(s): E11.9 - Type 2 diabetes mellitus without complications (3) HTN (hypertension) Current Visit: Yes Status: Chronic normotensive, continue home meds Qualifiers: Hypertension type: essential hypertension Qualified Code(s): I10 - Essential (primary) hypertension (4) Anxiety Current Visit: Yes Status: Chronic (5) Hyperlipidemia Current Visit: Yes Status: Chronic Qualifiers: Hyperlipidemia type: unspecified Qualified Code(s): E78.5 - Hyperlipidemia , unspecified (6) YONATAN (acute kidney injury) Current Visit: Yes Status: Acute Subjective Narrative: patient still complaining of soreness at anus, passing flatus but no bm yet tolerating diet no fevers Objective Vital Signs - Last 8 Hours Temp Pulse Resp BP Pulse Ox 01/19/17 07:30 98.1 F 63 16 130/74 94 L 01/19/17 04:32 98.0 F 57 18 121/71 97 Intake and Output 01/18/17 01/19/17 01/19/17 23:59 07:59 15:59 Intake Total 420 / 420 1150 / 1150 120 / 120 Output Total 600 / 600 1900 / 1900 Balance -180 / -180 -750 / -750 120 / 120 Intake: IV Fluids 300 / 300 1050 / 1050 0.9 % Sodium Chloride 1, 1000 / 1000 000 ML @ 75 mls/hr IVC . [id number] JORGE A Rx#: [id number] Cleocin 900 MG/50 ML 900 50 / 50 50 / 50 mg In 50 ml @ 50 mls/hr IVPB Q8HR JORGE A Rx#: [id number] Oral 120 / 120 100 / 100 120 / 120 Output: Urine 600 / 600 1900 / 1900 Other: Meal Dinner Breakfast Percent of Meal Consumed 50% 20% # Voids 3 Weight 77.9 kg Blood Glucose* [id number] Patient Weight 01/19/17 23:59 Weight 77.9 kg - General physical appearance well developed, well nourished, no distress - Eyes PERRL, normal ocular movement - ENT normal mucosa, normocephalic - Neck Neck exam: trachea midline - Respiratory clear to auscultation - Cardiovascular Cardiovascular exam: Present: RRR - Abdomen Abdomen: Present: soft, non tender - Rectum other (decreased erythema, induration and fluctuance, no significant purulent drainage) - Integumentary no rash, no growths - Neurologic CN 2-12 grossly intact - Musculoskeletal normal posture - Psychiatric oriented to time, memory intact - Labs 01/19/17 03:44 01/19/17 03:44 Vital Signs Temp Pulse Resp BP Pulse Ox 01/19/17 07:30 98.1 F 63 16 130/74 94 L 01/19/17 04:32 98.0 F 57 18 121/71 97 01/19/17 00:02 98.3 F 70 18 112/71 96 01/18/17 19:22 98.5 F 68 18 127/76 95 01/18/17 16:26 98.2 F 61 14 94/55 94 L 01/18/17 11:47 98.1 F 64 14 126/80 99 Intake and Output 01/18/17 01/19/17 01/19/17 23:59 07:59 15:59 Intake Total 420 / 420 1150 / 1150 120 / 120 Output Total 600 / 600 1900 / 1900 Balance -180 / -180 -750 / -750 120 / 120 Intake: IV Fluids 300 / 300 1050 / 1050 0.9 % Sodium Chloride 1, 1000 / 1000 000 ML @ 75 mls/hr IVC . [id number] JORGE A Rx#: [id number] Cleocin 900 MG/50 ML 900 50 / 50 50 / 50 mg In 50 ml @ 50 mls/hr IVPB Q8HR JORGE A Rx#: [id number] Oral 120 / 120 100 / 100 120 / 120 Output: Urine 600 / 600 1900 / 1900 Other: Meal Dinner Breakfast Percent of Meal Consumed 50% 20% # Voids 3 Weight 77.9 kg Blood Glucose* 242 [id number] Patient Weight 01/19/17 23:59 Weight 77.9 kg Short CBC 01/19/17 Range/Units 03:44 WBC 4.5 (4.3-11.1) K/mcL Hgb 10.5 L (11.5-15.4) g/dL Hct 32.5 L (35.3-44.9) % Plt Count 161 (140-400) K/mcL Neutrophils # 3.2 (1.6-8.9) K/mcL BMP 01/19/17 Range/Units 03:44 Sodium 137 (136-145) mEq/L Potassium 4.6 H (3.5-4.5) mEq/L Chloride 106 (98-109) mEq/L Carbon Dioxide 24 (19-29) mEq/L BUN 15 (7-20) mg/dL Creatinine 1.36 H (0.57-1.11) mg/dL Glucose 283 H (70-99) mg/dL Calcium 8.6 (8.6-10.8) mg/dL Consult Discharge Plan - Plan Additional Instructions: Continue sitz baths three times a day and after bowel movements. Keep the area clean and dry. Referrals: Yoselyn Camacho POLISHING MACHINE OPERATOR [Primary Care Provider] - - Attending Attestation I examined this patient and my medical decision-making was reviewed with the STAFFING COORDINATOR/PA/Advanced Practice Nurse/Resident Physician. I agree with the documented findings, disposition and treatment plan as described except to the extent set forth below. <EduardoJeevan James - Last Filed: 01/19/17 11:37> Date of Encounter: 01/19/17 Time of Encounter: 10:40 - Assessment and Plan (1) Perianal abscess Current Visit: Yes Status: Acute Sitz baths TID and after bowel movements. Continue clindamycin Day #3. Discontinue Vancomycin. Monitor creatinine. Restart Bactrim DS BID Prn pain control. Continue diabetic diet. Continue home medications. (2) YONATAN (acute kidney injury) Current Visit: Yes Status: Acute Creatinine elevated at 1.36 today. Vancomycin discontinued. Continue to monitor. If creatinine continues to increase will consult nephrology tomorrow morning. (3) Diabetes Current Visit: Yes Status: Chronic Sliding scale insulin. Continue to monitor. Qualifiers: Diabetes mellitus type: type 2 Diabetes mellitus complication status: without complication Diabetes mellitus assisted insulin use: unspecified computer terminal operator insulin use status Qualified Code(s): E11.9 - Type 2 diabetes mellitus without complications (4) HTN (hypertension) Current Visit: Yes Status: Chronic Continue home medications. Qualifiers: Hypertension type: essential hypertension Qualified Code(s): I10 - Essential (primary) hypertension (5) Anxiety Current Visit: Yes Status: Chronic Continue home medications. (6) Hyperlipidemia Current Visit: Yes Status: Chronic Continue home medications. Qualifiers: Hyperlipidemia type: unspecified Qualified Code(s): E78.5 - Hyperlipidemia , unspecified (7) DVT prophylaxis Current Visit: Yes Status: Acute Ambulate TID with assist. Subjective Patient reports: no new complaints, still having pain, voiding w/o difficulty, flatus, no bowel movement, afebrile Objective Vital Signs - Last 8 Hours Temp Pulse Resp BP Pulse Ox 01/19/17 07:30 98.1 F 63 16 130/74 94 L 01/19/17 04:32 98.0 F 57 18 121/71 97 Intake and Output 01/18/17 01/19/17 01/19/17 23:59 07:59 15:59 Intake Total 420 / 420 1150 / 1150 120 / 120 Output Total 600 / 600 1900 / 1900 Balance -180 / -180 -750 / -750 120 / 120 Intake: IV Fluids 300 / 300 1050 / 1050 0.9 % Sodium Chloride 1, 1000 / 1000 000 ML @ 75 mls/hr IVC . [id number] JORGE A Rx#: [id number] Cleocin 900 MG/50 ML 900 50 / 50 50 / 50 mg In 50 ml @ 50 mls/hr IVPB Q8HR JORGE A Rx#: [id number] Oral 120 / 120 100 / 100 120 / 120 Output: Urine 600 / 600 1900 / 1900 Other: Meal Dinner Breakfast Percent of Meal Consumed 50% 20% # Voids 3 Weight 77.9 kg Blood Glucose* 242 277 Patient Weight 01/19/17 23:59 Weight 77.9 kg - General physical appearance well developed, well nourished, no distress - Eyes PERRL, normal ocular movement - ENT normal mucosa, normocephalic - Neck Neck exam: trachea midline - Respiratory clear to auscultation - Cardiovascular Cardiovascular exam: Present: RRR - Abdomen Abdomen: Present: soft, non tender - Integumentary no rash - Neurologic CN 2-12 grossly intact - Musculoskeletal normal posture - Psychiatric oriented to time, oriented to person, oriented to place, memory intact - Labs 01/19/17 03:44 01/19/17 03:44 Diabetes panel 01/19/17 Range/Units 03:44 Sodium 137 (136-145) mEq/L Potassium 4.6 H (3.5-4.5) mEq/L Chloride 106 (98-109) mEq/L Carbon Dioxide 24 (19-29) mEq/L BUN 15 (7-20) mg/dL Creatinine 1.36 H (0.57-1.11) mg/dL Glucose 283 H (70-99) mg/dL Calcium 8.6 (8.6-10.8) mg/dL Calcium panel 01/19/17 Range/Units 03:44 Calcium 8.6 (8.6-10.8) mg/dL Pituitary panel 01/19/17 Range/Units 03:44 Sodium 137 (136-145) mEq/L Potassium 4.6 H (3.5-4.5) mEq/L Chloride 106 (98-109) mEq/L Carbon Dioxide 24 (19-29) mEq/L BUN 15 (7-20) mg/dL Creatinine 1.36 H (0.57-1.11) mg/dL Glucose 283 H (70-99) mg/dL Calcium 8.6 (8.6-10.8) mg/dL Adrenal panel 01/19/17 Range/Units 03:44 Sodium 137 (136-145) mEq/L Potassium 4.6 H (3.5-4.5) mEq/L Chloride 106 (98-109) mEq/L Carbon Dioxide 24 (19-29) mEq/L BUN 15 (7-20) mg/dL Creatinine 1.36 H (0.57-1.11) mg/dL Glucose 283 H (70-99) mg/dL Calcium 8.6 (8.6-10.8) mg/dL
[2017-01-19] MEDS ORDERED: Vancomycin 1,500 MG in D5% in Water 250 ML IVPB SCH (12:00)
[2017-01-19] MEDS: Sulfamethoxazole/Trimeth DS 1 EACH TABLET PO SCH ×2 (12:34→21:05)
[2017-01-19] MEDS: Lisinopril 20 MG TABLET PO SCH (21:05)
[2017-01-19] MEDS: *HR* LORazepam 1 MG TABLET PO SCH (21:06)
[2017-01-20 05:43] LABS: Calcium 8.5 mg/dL (8.6-10.8); Potassium 4.5 mEq/L (3.5-4.5)
[2017-01-20] MEDS: *HR* OxyCODONE/APAP 5/325 TABLET PO PRN (06:40)
[2017-01-20] MEDS: 0.9 % Sodium Chloride 1,000 ML IVC SCH (06:47)
[2017-01-20 08:05] VITALS: BP 116/72
[2017-01-20] MEDS: Clindamycin 900 MG/50 ML 900 MG/50 ML IV.SOLN IVPB SCH (08:11)
[2017-01-20] MEDS: *HR* Glimepiride 2 MG TABLET PO SCH (08:12)
[2017-01-20] MEDS: Loratadine 10 MG TABLET PO SCH (08:12)
[2017-01-20] MEDS: BuPROPion SR (12 HR) 150 MG TABLET PO SCH (08:12)
[2017-01-20] MEDS: *HR* Metformin 500 MG TABLET PO SCH (08:12)
[2017-01-20] MEDS: Fluconazole 100 MG TABLET PO SCH (08:13)
[2017-01-20] MEDS: (Linagliptin [Tradjenta] 5 MG) PO SCH (08:13)
[2017-01-20] MEDS: Sulfamethoxazole/Trimeth DS 1 EACH TABLET PO SCH (08:13)
[2017-01-20] MEDS: Insulin LISPRO 300 UNITS/3 ML VIAL SQ SCH (08:14)
== END 2017-01-20 09:30 | disposition home or self-care (01) ==
LOC: EMEROO 10:30 → 3ANU 10:30
PROVIDERS: ADMIT Surgery; ATTEND Surgery

== ENCOUNTER 2019-11-22 06:07 | Inpatient (IN) ==
[~2019-11-22 06:07] MED LIST: Bacitracin 50,000 UNIT, Polymyxin B Sulfate 500,000 UNIT, Sodium Chloride IRRigation 1,... IR ONE
[2019-11-22] MEDS ORDERED: Clindamycin 900 MG/50 ML 900 MG/50 ML IV.SOLN IVPB ONE (06:28)
[2019-11-22] MEDS ORDERED: Ringers Solution, Lactated 1,000 ML IVC SCH (06:30)
[2019-11-22] MEDS ORDERED: Lidocaine -MPF 2% 2 ML VIAL ONE (07:12)
[2019-11-22] MEDS ORDERED: Ondansetron 4 MG/2 ML VIAL ONE (07:12)
[2019-11-22] MEDS ORDERED: Neostigmine Methylsulfate 3 MG/3 ML SYRINGE ONE (07:12)
[2019-11-22] MEDS ORDERED: *HR* Rocuronium Bromide 50 MG/5 ML VIAL ONE (07:12)
[2019-11-22] MEDS ORDERED: Dexamethasone 4 MG/ML VIAL ONE (07:12)
[2019-11-22] MEDS ORDERED: *HR* Midazolam HCl 2 MG/2 ML VIAL ONE (07:13)
[2019-11-22] MEDS ORDERED: *HR* Remifentanil 1 MG VIAL IVP ONE ×2 (07:13→10:39)
[2019-11-22] MEDS ORDERED: *HR* Propofol 200 MG/20 ML VIAL IVP ONE (07:13)
[2019-11-22] MEDS ORDERED: Famotidine 20 MG/2 ML VIAL IVP ONE (07:14)
[2019-11-22] MEDS ORDERED: Acetaminophen IV 1,000 MG/100 ML INFUS..BTL IVPB ONE (07:14)
[2019-11-22] MEDS ORDERED: Gabapentin 300 MG CAPSULE PO ONE (07:14)
[2019-11-22] MEDS ORDERED: Albuterol 2.5 MG/3 ML NEBULIZER IH PRN (07:15)
[2019-11-22] MEDS ORDERED: *HR* OxyCODONE Immed Rel 5 MG TABLET PO PRN (07:15)
[2019-11-22] MEDS ORDERED: *HR* Labetalol 20 MG/4 ML SYRINGE IVP PRN (07:15)
[2019-11-22] MEDS ORDERED: Ondansetron 4 MG/2 ML VIAL IVP ONE (07:15)
[2019-11-22] MEDS ORDERED: *HR* Promethazine 25 MG/ML VIAL IVP PRN (07:15)
[2019-11-22] MEDS ORDERED: EPHEDrine 50 MG/ML VIAL ONE (08:41)
[2019-11-22] MEDS ORDERED: *HR* HYDROMORPHONE 2 MG/ML VIAL ONE (11:44)
[2019-11-22] MEDS ORDERED: Esmolol 100 MG/10 ML VIAL IVP ONE (11:57)
[2019-11-22] MEDS: *HR* HYDROmorphone (PF) 1 MG/ML SYRINGE IVP PRN ×2 (12:30→12:40)
[2019-11-22] MEDS ORDERED: Naloxone 0.4 MG/ML INJ IVP PRN (14:33)
[2019-11-22] MEDS ORDERED: Ondansetron 4 MG/2 ML VIAL IVP PRN (14:33)
[2019-11-22] MEDS ORDERED: hydrOXYzine pamoate 25 MG CAPSULE PO PRN (14:33)
[2019-11-22] MEDS ORDERED: Fluticasone Propionate Nasal 50 MCG/SPRAY BOTTLE NS PRN (14:33)
[2019-11-22] MEDS ORDERED: *HR* LORazepam 1 MG TABLET PO PRN (14:33)
[2019-11-22] MEDS ORDERED: Acetaminophen 325 MG TABLET PO PRN (14:33)
[2019-11-22] MEDS: *HR* OxyCODONE Immed Rel 5 MG TABLET PO PRN ×2 (15:56→20:07)
[2019-11-22] MEDS ORDERED: Clindamycin 600 MG/50 ML 600 MG/50 ML IV.SOLN IVPB SCH (16:00)
[2019-11-22] MEDS ORDERED: *HR* Dextrose 50 % in Water (Syg) 50 ML SYRINGE IVP PRN (17:25)
[2019-11-22] MEDS ORDERED: D5% in Water 1,000 ML IVC PRN (17:25)
[2019-11-22] MEDS ORDERED: Dextrose Gel 15 GM/37.5 ML TUBE PO PRN ×2 (17:25)
[2019-11-22] MEDS: Insulin LISPRO 300 UNITS/3 ML VIAL SQ SCH ×2 (17:51→20:11)
[2019-11-22] MEDS: *HR* Metformin 500 MG TABLET PO SCH (18:11)
[2019-11-22] MEDS: Clindamycin 600 MG/50 ML 600 MG/50 ML IV.SOLN IVPB SCH (18:12)
[2019-11-22] MEDS: Insulin DETEMIR 100 UNIT/ML X5UNITS SQ SCH (20:11)
[2019-11-23] MEDS: *HR* OxyCODONE Immed Rel 5 MG TABLET PO PRN ×6 (00:20→22:39)
[2019-11-23] MEDS: Clindamycin 600 MG/50 ML 600 MG/50 ML IV.SOLN IVPB SCH (00:21)
[2019-11-23] MEDS: *HR* HYDROcodone/Acet 5/325 mg TABLET PO PRN ×4 (01:09→19:16)
[2019-11-23] MEDS: Cyanocobalamin (B-12) 1,000 MCG TABLET PO SCH (07:34)
[2019-11-23] MEDS: Ascorbic Acid 500 MG TABLET PO SCH (07:34)
[2019-11-23] MEDS: Loratadine 10 MG TABLET PO SCH (07:34)
[2019-11-23] MEDS: Aspirin Enteric Coated 81 MG Tablet PO SCH (07:34)
[2019-11-23] MEDS: *HR* Metformin 500 MG TABLET PO SCH ×2 (07:34→21:21)
[2019-11-23] MEDS: Prenatal Vit/FA 1 EACH TABLET PO SCH (07:34)
[2019-11-23] MEDS: BuPROPion XL (24 HR) 150 MG TABLET PO SCH (07:35)
[2019-11-23] MEDS: *HR* Glimepiride 2 MG TABLET PO SCH (07:35)
[2019-11-23] MEDS: Insulin LISPRO 300 UNITS/3 ML VIAL SQ SCH ×4 (07:36→21:16)
[2019-11-23] MEDS ORDERED: (Biotin 1 MG) PO SCH (09:00)
[2019-11-23] MEDS: Lisinopril 20 MG TABLET PO SCH (15:09)
[2019-11-23] MEDS: Linaclotide [Linzess] 145 MCG PO SCH (15:09)
[2019-11-23] MEDS: Insulin DETEMIR 100 UNIT/ML X5UNITS SQ SCH (21:16)
[2019-11-24] MEDS: *HR* HYDROcodone/Acet 5/325 mg TABLET PO PRN ×2 (01:46→13:21)
[2019-11-24] MEDS: *HR* OxyCODONE Immed Rel 5 MG TABLET PO PRN ×5 (03:05→21:00)
[2019-11-24] MEDS: Insulin LISPRO 300 UNITS/3 ML VIAL SQ SCH ×4 (07:38→21:02)
[2019-11-24] MEDS: Lisinopril 20 MG TABLET PO SCH (07:39)
[2019-11-24] MEDS: *HR* Glimepiride 2 MG TABLET PO SCH (07:44)
[2019-11-24] MEDS: Ascorbic Acid 500 MG TABLET PO SCH (07:44)
[2019-11-24] MEDS: Loratadine 10 MG TABLET PO SCH (07:44)
[2019-11-24] MEDS: Prenatal Vit/FA 1 EACH TABLET PO SCH (07:44)
[2019-11-24] MEDS: Cyanocobalamin (B-12) 1,000 MCG TABLET PO SCH (07:44)
[2019-11-24] MEDS: BuPROPion XL (24 HR) 150 MG TABLET PO SCH (07:44)
[2019-11-24] MEDS: Aspirin Enteric Coated 81 MG Tablet PO SCH (07:44)
[2019-11-24] MEDS: Linaclotide [Linzess] 145 MCG PO SCH ×2 (07:45→12:53)
[2019-11-24] MEDS: *HR* Metformin 500 MG TABLET PO SCH ×3 (07:45→15:53)
[2019-11-24] MEDS ORDERED: Ergocalciferol (VIT D2) 50,000 UNIT (1.25MG) CAP PO SCH (12:08)
[2019-11-24] MEDS: Ringers Solution, Lactated 1,000 ML IVC SCH (20:59)
[2019-11-24] MEDS: Insulin DETEMIR 100 UNIT/ML X5UNITS SQ SCH (21:02)
[2019-11-25] MEDS: *HR* OxyCODONE Immed Rel 5 MG TABLET PO PRN ×4 (03:14→17:09)
[2019-11-25] MEDS: Insulin LISPRO 300 UNITS/3 ML VIAL SQ SCH ×4 (07:46→20:45)
[2019-11-25] MEDS: Aspirin Enteric Coated 81 MG Tablet PO SCH (07:47)
[2019-11-25] MEDS: *HR* Glimepiride 2 MG TABLET PO SCH (07:47)
[2019-11-25] MEDS: Prenatal Vit/FA 1 EACH TABLET PO SCH (07:47)
[2019-11-25] MEDS: Loratadine 10 MG TABLET PO SCH (07:47)
[2019-11-25] MEDS: Linaclotide [Linzess] 145 MCG PO SCH (07:47)
[2019-11-25] MEDS: *HR* Metformin 500 MG TABLET PO SCH ×2 (07:47→17:09)
[2019-11-25] MEDS: Ascorbic Acid 500 MG TABLET PO SCH (07:48)
[2019-11-25] MEDS: Cyanocobalamin (B-12) 1,000 MCG TABLET PO SCH (07:48)
[2019-11-25] MEDS: BuPROPion XL (24 HR) 150 MG TABLET PO SCH (07:48)
[2019-11-25] MEDS: Lisinopril 20 MG TABLET PO SCH (07:48)
[2019-11-25] MEDS ORDERED: Gabapentin 300 MG CAPSULE PO SCH (10:15)
[2019-11-25] MEDS: Gabapentin 300 MG CAPSULE PO SCH ×2 (15:11→20:08)
[2019-11-25] MEDS: tiZANidine 4 MG TABLET PO SCH ×2 (15:11→20:08)
[2019-11-25] MEDS: *HR* HYDROcodone/Acet 5/325 mg TABLET PO PRN (20:08)
[2019-11-25] MEDS: Insulin DETEMIR 100 UNIT/ML X5UNITS SQ SCH (20:44)
[2019-11-26 07:39] VITALS: BP 121/68
[2019-11-26] MEDS: Insulin LISPRO 300 UNITS/3 ML VIAL SQ SCH (08:11)
[2019-11-26] MEDS: *HR* OxyCODONE Immed Rel 5 MG TABLET PO PRN ×2 (09:04→13:19)
[2019-11-26] MEDS: Prenatal Vit/FA 1 EACH TABLET PO SCH (09:05)
[2019-11-26] MEDS: Cyanocobalamin (B-12) 1,000 MCG TABLET PO SCH (09:06)
[2019-11-26] MEDS: BuPROPion XL (24 HR) 150 MG TABLET PO SCH (09:06)
[2019-11-26] MEDS: tiZANidine 4 MG TABLET PO SCH (09:06)
[2019-11-26] MEDS: Loratadine 10 MG TABLET PO SCH (09:06)
[2019-11-26] MEDS: Aspirin Enteric Coated 81 MG Tablet PO SCH (09:07)
[2019-11-26] MEDS: Ascorbic Acid 500 MG TABLET PO SCH (09:07)
[2019-11-26] MEDS: Gabapentin 300 MG CAPSULE PO SCH (09:07)
[2019-11-26] MEDS: *HR* Metformin 500 MG TABLET PO SCH (09:07)
[2019-11-26] MEDS: *HR* Glimepiride 2 MG TABLET PO SCH (09:07)
[2019-11-26] MEDS: Lisinopril 20 MG TABLET PO SCH (09:08)
[2019-11-26] MEDS: Linaclotide [Linzess] 145 MCG PO SCH (09:08)
[2019-11-27] MEDS ORDERED: NON-FORMULARY MEDICATION 1 EACH EACH (Dulaglutide [Trulicity] 0.75 MG) SQ SCH (12:08)
== END 2019-11-26 13:41 | disposition home health service (06) | DRG 455 ==
LOC: SAMDAY 06:07 → 3NENU 14:14
PROVIDERS: ADMIT Orthopaedic Surgery Orthopaedic Surgery of the Spine; ATTEND Orthopaedic Surgery Orthopaedic Surgery of the Spine